=== PATIENT | male | born 1980 | race Caucasian/White ===

== ENCOUNTER 2016-12-30 20:06 | Emergency (ER) | payer SELFPAY ==
[~2016-12-30] VITALS: Ht 175.3 cm; Wt 91.4 kg
[2016-12-30 20:09] VITALS: BP 152/86
[2016-12-30] MEDS ORDERED: SODIUM CHLORIDE 0.9% 1,000ML IVBOLUS ONE (21:30)
[2016-12-30] MEDS ORDERED: ONDANSETRON 2MG/ML, 2ML IVPush ONE (21:30)
[2016-12-30] MEDS ORDERED: MORPHINE SULFATE 4 MG/ML, 1ML IVPush PRN (21:30)
[2016-12-30] MEDS ORDERED: SODIUM CHLORIDE FLUSH 10ML SYR IVF ONE (21:30)
[2016-12-30] MEDS ORDERED: MORPHINE SULFATE 4 MG/ML, 1ML ONE (21:48)
[2016-12-30] MEDS ORDERED: ONDANSETRON 2MG/ML, 2ML ONE (21:48)
[2016-12-30 21:52] LABS: ASPARTATE AMINO TRANSFERASE 14 U/L (15-37); BLOOD UREA NITROGEN 17 mg/dL (7-18)
[2016-12-30] MEDS ORDERED: DIVA500T2 PO (21:53)
[2016-12-30] MEDS ORDERED: OMNIPAQUE 350 MG/ML, 100ML BOTTLE ONE (22:27)
== END 2016-12-30 23:14 | disposition home or self-care (01) ==
LOC: ED 23:08
DX: R11.2 Nausea with vomiting, unspecified (principal); R10.84 Generalized abdominal pain; Z88.6 Allergy status to analgesic agent; Z88.8 Allergy status to other drugs, medicaments and biological substances
CPT/HCPCS: 36415; 74177; 76700; 80053; 83690; 85025; 96374; 96375; 99285; J2405; J7030; Q9967

== ENCOUNTER 2017-01-01 18:47 | Emergency (ER) | payer SELFPAY ==
[~2017-01-01] VITALS: Ht 175.3 cm; Wt 86.7 kg
[~2017-01-01 18:47] MED LIST: DIVA500T2 PO
[2017-01-01 18:51] VITALS: BP 122/86
[2017-01-01 19:50] LABS: ASPARTATE AMINO TRANSFERASE 18 U/L (15-37); BLOOD UREA NITROGEN 15 mg/dL (7-18)
== END 2017-01-01 21:58 | disposition left against medical advice (07) ==
LOC: ED 21:43
DX: R10.9 Unspecified abdominal pain (principal); K92.0 Hematemesis
CPT/HCPCS: 36415; 80053; 83690; 85025; 99284